=== PATIENT | male | born 1995 | race Two or more races ===

== ENCOUNTER 2019-04-19 07:02 | Emergency (ER) | payer OTHER ==
[~2019-04-19] VITALS: Ht 170.2 cm; Wt 70.3 kg
[2019-04-19 07:40] VITALS: BP 130/88
[2019-04-19] MEDS ORDERED: IPRATROPIUM BROM 0.5 MG/2.5ML INH SOL NEB ONE (07:45)
[2019-04-19] MEDS ORDERED: ALBUTEROL SULF 2.5 MG/0.5ML(0.5%) NEB SOLN NEB ONE (07:45)
[2019-04-19] MEDS ORDERED: IBUPROFEN 600 MG TAB PO ONE (07:45)
[2019-04-19] MEDS ORDERED: cefTRIAXone SOD 1,000 MG VL IM ONE (08:00)
== END 2019-04-19 08:30 | disposition home or self-care (01) ==
LOC: ER 07:02
DX: J45.909 Unspecified asthma, uncomplicated (principal); J03.90 Acute tonsillitis, unspecified; Z76.0 Encounter for issue of repeat prescription
CPT/HCPCS: 71046; 94640; 96372; 99283; J0696; J7611; J7644